=== PATIENT | female | born 1975 | race Caucasian/White ===

== ENCOUNTER 2018-01-13 21:03 | Emergency (ER) | payer SELFPAY ==
[~2018-01-13] VITALS: Ht 167.6 cm; Wt 78.2 kg
[2018-01-13 21:05] VITALS: BP 112/90
== END 2018-01-14 00:08 | disposition home or self-care (01) ==
LOC: EME 21:03
PROC: 0HQFXZZ Repair Right Hand Skin, External Approach (ICD-10-PCS; principal; 2018-01-13)
DX: S61.212A Laceration without foreign body of right middle finger without damage to nail, initial encounter (principal); W26.0XXA Contact with knife, initial encounter; Y93.G1 Activity, food preparation and clean up
CPT/HCPCS: 73140; 99281; 99284